=== PATIENT | female | born 1940 | race Two or more races ===

== ENCOUNTER 2023-08-24 12:59 | Emergency (ER) | payer MEDICARE ==
[~2023-08-24] VITALS: Ht 149.9 cm; Wt 63.6 kg
[2023-08-24 12:59] VITALS: TEMP 97.8
[2023-08-24] MEDS: LIDOCAINE 1% 10 ML VIAL SQ ONE (14:23)
[2023-08-24] MEDS: PERTUSS(ACELL),DIPH,TET VAC/PF 0.5 ML SYRINGE IM. ONE (14:24)
[2023-08-24] MEDS: BACITRACIN 0.9 GM PACKET OINTMENT TP ONE (16:14)
[2023-08-24 17:45] VITALS: BP 150/81; PULSE 81; RESP 16
== END 2023-08-24 18:02 | disposition home or self-care (01) ==
LOC: EMS 16:37
DX: S01.511A Laceration without foreign body of lip, initial encounter (principal); S40.211A Abrasion of right shoulder, initial encounter; J45.909 Unspecified asthma, uncomplicated; I10 Essential (primary) hypertension; W18.39XA Other fall on same level, initial encounter; Y93.89 Activity, other specified; Y92.89 Other specified places as the place of occurrence of the external cause; Y99.8 Other external cause status
CPT/HCPCS: 99285; 70450; 73030; 73130; 72125; 90715; 90471; 12011; J3490